=== PATIENT | male | born 1955 | race Caucasian/White ===

== ENCOUNTER 2022-12-07 08:22 | Emergency (ER) | payer MEDICARE, BC ==
[~2022-12-07] VITALS: Ht 182.9 cm; Wt 72.6 kg
[2022-12-07 10:24] LABS: Source, Urine Clean Catch
[2022-12-07 10:28] LABS: Hematocrit 40.2 % (37.0-53.0); Hemoglobin 13.5 g/dL (13.5-17.5); Mean Corpuscular HGB 29.2 pg (26.0-34.0); Mean Corpuscular HGB Conc 33.6 g/dL (31.5-36.5); Mean Corpuscular Volume 87 fL (80-100); Mean Platelet Volume 9.4 fL (9.1-12.4); Platelet Count 269 K/mm3 (150-400); RDW Coefficient Variation 13.5 % (11.7-14.2); RDW Standard Deviation 42.5 fL (35.1-46.3); Red Blood Cell Count 4.62 M/mm3 (4.30-5.90); White Blood Cell Count 12.86 K/mm3 (4.00-11.30)
[2022-12-07 10:30] LABS: Appearance, Urine Hazy (Clear); Bilirubin, Urine Neg (Neg); Blood, Urine 5+ (Neg); Color, Urine Amber (P-Yellow); Glucose Qualitative, Urine Neg (Neg); Ketones, Urine Neg (Neg); Leukocyte Esterase, Urine 3+ (Neg); Nitrite, Urine Neg (Neg); Protein, Urine 3+ (Neg); Urobilinogen, Urine NORM (Normal)
[2022-12-07 10:39] LABS: Mucus Light (0-Heavy); Squamous Epithelial Cells Few /hpf (Few)
[2022-12-07 10:40] LABS: Bacteria Few /hpf; Oval Fat Bodies Few /lpf; Red Blood Cells, Urine TNTC /hpf (0-2); White Blood Cells, Urine TNTC /hpf (0-5)
[2022-12-07 10:48] LABS: BASOPHILS PERCENT MAN 0 % (0-2); EOSINOPHILS ABSOLUTE MAN 0.12 K/mm3 (0.00-0.68); EOSINOPHILS PERCENT MAN 1 % (0-6); LYMPHOCYTES % ATYPICAL MANUAL 3 % (0-0); LYMPHOCYTES ABSOLUTE MAN 2.44 K/mm3 (0.84-5.20); LYMPHOCYTES PERCENT MAN 16 % (21-46); MONOCYTES ABSOLUTE MAN 0.51 K/mm3 (0.16-1.47); MONOCYTES PERCENT MAN 4 % (4-13); NEUTROPHILS ABSOLUTE MAN 9.77 K/mm3 (1.96-9.15); SEG NEUTROPHILS PERCENT MAN 76 % (41-73); TOTAL CELLS COUNTED 100
[2022-12-07 10:52] LABS: Albumin/Globulin Ratio 0.7 (0.8-1.8); Bilirubin, Total 0.3 mg/dL (0.1-1.0); Bun/Creatinine Ratio 12.6 (12.0-20.0); Calcium, Blood 9.4 mg/dL (8.5-10.1); Creatinine, Blood 0.96 mg/dL (0.60-1.20); Globulin, Blood 4.2 g/dL (2.2-4.0); Potassium, Blood 3.5 mmol/L (3.5-5.5); Total Protein, Blood 7.2 g/dL (6.4-8.2)
[2022-12-07] MEDS ORDERED: CEFP200 PO (11:47)
[2022-12-07 12:26] VITALS: BP 133/82
== END 2022-12-07 12:23 | disposition home or self-care (01) ==
LOC: ER 08:22
PROVIDERS: Emergency Medicine
DX: N12 Tubulo-interstitial nephritis, not specified as acute or chronic (principal)
CPT/HCPCS: 36415; 74176; 80053; 81001; 83605; 85025; 87040; 87077; 87086; 87186; 96365; 99284-25; J0696

== ENCOUNTER 2023-08-29 07:17 | Inpatient (IN) | payer MEDICARE, BC ==
[~2023-08-29] VITALS: Ht 180.3 cm; Wt 92.1 kg
[~2023-08-29 07:17] MED LIST: CEFP200 PO
[2023-08-29] MEDS ORDERED: Ondansetron HCl 2 MG / ML 2ML Vial IV ONE (08:50)
[2023-08-29] MEDS ORDERED: NS 1,000 ML IV SCH ×2 (08:50→13:00)
[2023-08-29 08:58] LABS: BASOPHILS ABSOLUTE AUTO 0.02 K/mm3 (0.00-0.23); BASOPHILS PERCENT AUTO 0 % (0-2); EOSINOPHILS PERCENT AUTO 0 % (0-6); Hematocrit 37.1 % (37.0-53.0); Hemoglobin 12.4 g/dL (13.5-17.5); IMMATURE GRAN ABSOLUTE AUTO 0.08 K/mm3 (0.00-0.10); IMMATURE GRAN PERCENT AUTO 1 % (0-1); LYMPHOCYTES ABSOLUTE AUTO 0.85 K/mm3 (0.84-5.20); LYMPHOCYTES PERCENT AUTO 5 % (21-46); MONOCYTES ABSOLUTE AUTO 0.86 K/mm3 (0.16-1.47); MONOCYTES PERCENT AUTO 5 % (4-13); Mean Corpuscular HGB Conc 33.4 g/dL (31.5-36.5); Mean Corpuscular Volume 90 fL (80-100); Mean Platelet Volume 8.8 fL (9.1-12.4); NEUTROPHILS ABSOLUTE AUTO 14.63 K/mm3 (1.96-9.15); NEUTROPHILS PERCENT AUTO 89 % (41-73); Platelet Count 281 K/mm3 (150-400); RDW Coefficient Variation 13.4 % (11.7-14.2); RDW Standard Deviation 44.3 fL (35.1-46.3); Red Blood Cell Count 4.13 M/mm3 (4.30-5.90); White Blood Cell Count 16.44 K/mm3 (4.00-11.30)
[2023-08-29 09:01] LABS: Source, Urine Clean Catch
[2023-08-29 09:03] LABS: Bilirubin, Urine Neg (Neg); Blood, Urine Neg (Neg); Glucose Qualitative, Urine Neg (Neg); Ketones, Urine Neg (Neg); Leukocyte Esterase, Urine Neg (Neg); Nitrite, Urine Neg (Neg); Protein, Urine Neg (Neg); Urobilinogen, Urine NORM (Normal)
[2023-08-29 09:06] LABS: Appearance, Urine Clear (Clear); Color, Urine Yellow (P-Yellow)
[2023-08-29 09:19] LABS: Albumin, Blood 3.9 g/dL (3.4-5.0); Albumin/Globulin Ratio 1.1 (0.8-1.8); Bilirubin, Total 0.7 mg/dL (0.1-1.0); Bun/Creatinine Ratio 13.7 (12.0-20.0); Calcium, Blood 10.1 mg/dL (8.5-10.1); Creatinine, Blood 2.62 mg/dL (0.60-1.20); Globulin, Blood 3.4 g/dL (2.2-4.0); Potassium, Blood 4.8 mmol/L (3.5-5.5); Total Protein, Blood 7.3 g/dL (6.4-8.2)
[2023-08-29] MEDS ORDERED: FentaNYL Citrate 50 MCG/ML 2 ML Injection IV PRN (12:15)
[2023-08-29] MEDS ORDERED: Acetaminophen 325 MG TABLET PO PRN (12:15)
[2023-08-29] MEDS ORDERED: HYDROcodone 5-APAP 325 TAB PO PRN (12:20)
[2023-08-29] MEDS ORDERED: Ondansetron HCl 2 MG / ML 2ML Vial IV PRN (12:20)
[2023-08-29] MEDS ORDERED: HydrALAZINE HCl 20 MG / ML 1ML Vial IV PRN (12:20)
[2023-08-29 14:19] VITALS: BP 131/68
[2023-08-29] MEDS ORDERED: Tamsulosin HCl 0.4 MG Cap PO SCH (15:00)
--- NOTE | 2023-08-29 18:30 | NUR ---
SHIFT SUMMARY 68 Y/O MALE ER ADMIT FOR ACUTE RENAL FAILURE. PT BUCKED OFF HORSE ABOUT 12 DAYS AGO AND REPORTS INCREASING N/V, ABD PAIN, COLD SWEATS, AND UNABLE TO URINATE SINCE NOON 08/28/23. PT ALSO REPORTED SOB W/ AMBULATION. PT DENIES PAIN. PT REPORTS ONLY MEDICAL HX IS ENLARGED PROSTATE, UNMEDICATED. CURRENTLY NEW RX FOR FLOMAX. VS STABLE. ALCANTAR IN PLACE DRAINING LIGHT YELLOW URINE. PER DR. LAWLER TO REMAIN IN PLACE FOR DAY OR TWO TO ASSIST IN RETENTION AND RENAL FX. DR BELTRAN IN TO SEE PT THIS ESTELITA, REPORTS NO SURGICAL INTERVENTIONS NEEDED AT THIS TIME, AND NO MOBILITY RESTRICTIONS. PT A&OX4, PLEASANT. CALL LIGHT W/IN REACH. NO ACUTE CHANGES THIS SHIFT.
[2023-08-29 19:22] VITALS: BP 107/65
[2023-08-30 04:35] VITALS: BP 113/70
[2023-08-30 04:52] LABS: Hematocrit 34.8 % (37.0-53.0); Hemoglobin 11.5 g/dL (13.5-17.5); Mean Corpuscular HGB 30.1 pg (26.0-34.0); Mean Corpuscular Volume 91 fL (80-100); Platelet Count 232 K/mm3 (150-400); RDW Coefficient Variation 13.8 % (11.7-14.2); RDW Standard Deviation 45.6 fL (35.1-46.3); Red Blood Cell Count 3.82 M/mm3 (4.30-5.90); White Blood Cell Count 11.35 K/mm3 (4.00-11.30)
--- NOTE | 2023-08-30 05:04 | NUR ---
SHIFT SUMMARY VSS, TELE READS SR 70. PT SLEPT WELL T/O THE ENTIRE NIGHT, DID NOT GET OOB. ALCANTAR REMAINS IN PLACE, DRAINING YELLOW URINE. PT REPORTS MINIMAL PAIN ON L SIDE OF BODY BUT DENIES NEEDING PAIN MEDICATION AT THIS TIME. NO ACUTE EVENTS NOTED. PLAN TO AWAIT LAB RESULTS AND FURTHER ORDERS FROM THE PROVIDER. THE PATIENT IS CURRENTLY EATING A SNACK, IN NO DISTRESS, CALL LIGHT IN REACH
[2023-08-30 05:46] LABS: Calcium, Blood 9.3 mg/dL (8.5-10.1); Potassium, Blood 3.9 mmol/L (3.5-5.5)
[2023-08-30 07:41] VITALS: BP 121/75
[2023-08-30 14:49] VITALS: BP 131/90
--- NOTE | 2023-08-30 15:27 | NUR ---
REPORT RECEIVED FROM TIM CORBIN AND ASSUMED CARE FOR THIS PATIENT. PATIENT SITTING UP IN CHAIR. APPEARED COMFORTABLE AND DENIED ANY DISCOMFORT AT THE TIME. CALL LIGHT WITHIN REACH.
--- NOTE | 2023-08-30 18:07 | NUR ---
SHIFT SUMMARY URINE RETENTION AND ACUTE KIDNEY INJURY A&O X 4. COMMUNICATED ALL NEEDS WELL. PLEASANT AND COOPERATIVE. AMBULATORY WITHOUT ASSISTANCE OR ASSISTIVE DEVICE. INDWELLING ALCANTAR REMOVED TODAY AT 0955. NO VOID AT 1615. BLADDER SCANNED WITH 896CC WITH C/O BLADDER PRESSURE AND SHAKING. DR. HALL VISITED AND GAVE ORDER TO STRAIGHT CATH AND PROVIDE PATIENT TEACHING TO STRAIGHT CATH PART OF DISCHARGE PLANNING. STRAIGHT CATH PERFORMED @ 1700 AND ABLE TO OBTAIN 1050CC OF CLEAR AND YELLOW URINE. PATIENT TOLERATED PROCEDURE WELL AND TEACHING PROVIDED. ROSITA CORBIN CALLED DR. HALL AND REPORTED STRAIGHT CATH RESULTS. RECEIVED ORDER PER DR. HALL TO STRAIGHT CATH EVERY 4 HOURS NEEDED FOR BLADDER SCAN OVER 300CC. PATIENT HAD RECENT INCIDENT WITH MULTIPLE LEFT RIB FX AND LEFT PELVIC FX. PAIN IS MANAGED WITH REST AND PATIENT REPORTS 0/10 DURING THIS ASSESSMENT RELATED TO MENTIONED INJURIES. ALL PATIENTS NEEDS ANTICIPATED AND MET. CALL LIGHT WITHIN REACH.
[2023-08-30 20:24] VITALS: BP 139/84
[2023-08-30] MEDS ORDERED: Tamsulosin HCl 0.4 MG Cap PO SCH (21:00)
--- NOTE | 2023-08-30 21:29 | NUR ---
URINARY MANAGEMENT PT REPORTED FLANK PAIN AND SUPRAPUBIC TENDERNESS, LAST STRAIT CATH BEING AROUND 1700 W/ 1000MLS OUTPUT. PT WAS REQUESTING A BLADDER SCAN AT THIS TIME, AROUND 2119. BLADDER SCAN SHOWED RESULTS >950. PT STATED HE DID NOT WANT ANOTHER STRAIT CATH AND WAS FEELING VERY ANXIOUS AND DISCOURAGED ABOUT HAVING TO DO THAT AT HOME. HE EXPRESSED AT THIS TIME HE WOULD BE MORE COMFORTABLE WITH A ALCANTAR IN PLACE AND LEARN HOW TO MANAGE THIS PROPERLY. CALL PLACED TO HOSPITALIST AND EXPLAINED THE SITUATION, RECIEVED ORDER FOR ACLANTAR PLACEMENT. IMMEDIATELY GOT 1000 MLS URINE OUTPUT, PT REPORTS SIGNIFIGANT RELIEF. URINE SENT TO LAB FOR URINE SCREEN. PLAN TO CALL HOSPIALIST WITH FURTHER CONCERNS
[2023-08-30 21:54] LABS: Source, Urine Foley catheter
[2023-08-30 21:57] LABS: Bilirubin, Urine Neg (Neg); Blood, Urine 4+ (Neg); Glucose Qualitative, Urine Neg (Neg); Ketones, Urine Neg (Neg); Leukocyte Esterase, Urine Neg (Neg); Nitrite, Urine Neg (Neg); Protein, Urine Neg (Neg); Specific Gravity, Urine 1.015 (1.003-1.022); Urobilinogen, Urine NORM (Normal)
[2023-08-30 22:01] LABS: Appearance, Urine Clear (Clear); Color, Urine Yellow (P-Yellow)
[2023-08-30 22:17] LABS: Bacteria Rare /hpf; Red Blood Cells, Urine 0-2 /hpf (0-2); Squamous Epithelial Cells Rare /hpf (Few); White Blood Cells, Urine 0-2 /hpf (0-5)
[2023-08-31 04:48] VITALS: BP 118/72
--- NOTE | 2023-08-31 05:47 | NUR ---
SHIFT SUMMARY VSS. PT SLEPT WELL T/O THE NIGHT. REPORTS SIGNIFIGANT IMPROVEMENT IN LOWER BACK/FLANK DISCOMFORT SINCE ALCANTAR PLACEMENT. LARGE AMOUNTS OF URINE NOTED. PLEASE SEE PREVIOUS NURSING NOTE FOR UPDATE ON WHY ALCANTAR CATHETER WAS PLACED. TOLLERATING PO W/O N/V. OVERALL NO ACUTE EVENTS NOTED. PLAN FOR PT TO D/C WHEN MEDICALLY CLEARED
[2023-08-31 05:48] LABS: Bun/Creatinine Ratio 19.4 (12.0-20.0); Calcium, Blood 9.8 mg/dL (8.5-10.1); Creatinine, Blood 0.88 mg/dL (0.60-1.20)
[2023-08-31 07:46] VITALS: BP 120/85
[2023-08-31] MEDS ORDERED: TAMS.4ER PO (10:33)
--- NOTE | 2023-08-31 13:30 | NUR ---
DISCHARGE SUMMARY ADMITTED FOR URINE RETENTION AND ALVARO. A&O X 4. PLEASANT AND COOPERATIVE. COMMUNICATED WELL. 16FR 10CC INDWELLING ALCANTAR IN PLACE. DRAINING CLEAR AND YELLOW URINE. DISCUSSED AND REVIEWED DISCHARGE PACKET TO PATIENT. PROVIDED TEACHING REGARDING INDWELLING ALCANTAR CARE AT HOME AND HOW TO CHANGE FROM OVERNIGHT BAG TO LEG BAG. OVERNIGHT DRAIN BAG CHANGED TO LEG BAG PLACED PRIOR TO DISCHARGE. PATIENT VERBALIZED GOOD UNDERSTANDING AND WAS VERY RECEPTIVE OF ALL TEACHINGS. DISCHARGE PACKET AND PERSONAL BELONGINGS SENT WITH PATIENT. PATIENT'S SPOUSE TO TRANSPORT PATIENT BACK TO HOME. PATIENT AMBULATED FROM ROOM TO VEHICLE. RX FAXED TO [facility]. PATIENT ALSO MADE AWARE OF HOME HEALTH REFERRAL AND VERBALIZED UNDERSTANDING.
== END 2023-08-31 13:11 | disposition home or self-care (01) | DRG 682 ==
LOC: ER 07:17 → MEDS 12:47 → SURS 14:13
PROVIDERS: Internal Medicine; Physician Assistant; ADMIT Internal Medicine
DX: N17.9 Acute kidney failure, unspecified (principal); K68.3 Retroperitoneal hematoma; S27.1XXA Traumatic hemothorax, initial encounter; S22.088A Other fracture of T11-T12 vertebra, initial encounter for closed fracture; S22.42XA Multiple fractures of ribs, left side, initial encounter for closed fracture; S33.4XXA Traumatic rupture of symphysis pubis, initial encounter; S30.0XXA Contusion of lower back and pelvis, initial encounter; K59.00 Constipation, unspecified; N40.0 Benign prostatic hyperplasia without lower urinary tract symptoms; R33.9 Retention of urine, unspecified; N13.9 Obstructive and reflux uropathy, unspecified; V80.010A Animal-rider injured by fall from or being thrown from horse in noncollision accident, initial encounter
CPT/HCPCS: 36415; 51702; 71046; 71250; 72170; 74177; 80048; 80053; 81001; 81003; 83690; 85025; 85027; 96360-59; 97161; 99285-25; A9270; J7030; Q9967

== ENCOUNTER 2023-11-14 14:21 | Observation (INO) | payer MEDICARE, BC ==
[~2023-11-14] VITALS: Ht 182.9 cm; Wt 92.5 kg
[~2023-11-14 14:21] MED LIST changes: +TAMS.4ER PO
[2023-11-14] MEDS ORDERED: ELIQUIS2.5 M1 PO (14:28)
[2023-11-14 15:11] LABS: BASOPHILS ABSOLUTE AUTO 0.06 K/mm3 (0.00-0.23); BASOPHILS PERCENT AUTO 1 % (0-2); EOSINOPHILS ABSOLUTE AUTO 0.49 K/mm3 (0.00-0.68); EOSINOPHILS PERCENT AUTO 7 % (0-6); Hematocrit 42.6 % (37.0-53.0); Hemoglobin 13.9 g/dL (13.5-17.5); IMMATURE GRAN ABSOLUTE AUTO 0.02 K/mm3 (0.00-0.10); IMMATURE GRAN PERCENT AUTO 0 % (0-1); LYMPHOCYTES ABSOLUTE AUTO 1.71 K/mm3 (0.84-5.20); LYMPHOCYTES PERCENT AUTO 25 % (21-46); MONOCYTES ABSOLUTE AUTO 0.54 K/mm3 (0.16-1.47); MONOCYTES PERCENT AUTO 8 % (4-13); Mean Corpuscular HGB 28.7 pg (26.0-34.0); Mean Corpuscular HGB Conc 32.6 g/dL (31.5-36.5); Mean Corpuscular Volume 88 fL (80-100); Mean Platelet Volume 9.2 fL (9.1-12.4); NEUTROPHILS ABSOLUTE AUTO 4.05 K/mm3 (1.96-9.15); NEUTROPHILS PERCENT AUTO 59 % (41-73); Platelet Count 205 K/mm3 (150-400); RDW Coefficient Variation 13.5 % (11.7-14.2); RDW Standard Deviation 43.7 fL (35.1-46.3); Red Blood Cell Count 4.85 M/mm3 (4.30-5.90); White Blood Cell Count 6.87 K/mm3 (4.00-11.30)
[2023-11-14 15:39] LABS: Albumin, Blood 3.9 g/dL (3.4-5.0); Albumin/Globulin Ratio 1.2 (0.8-1.8); Bilirubin, Total 0.4 mg/dL (0.1-1.0); Bun/Creatinine Ratio 14.2 (12.0-20.0); Calcium, Blood 9.4 mg/dL (8.5-10.1); Creatinine, Blood 0.98 mg/dL (0.60-1.20); Globulin, Blood 3.2 g/dL (2.2-4.0); Total Protein, Blood 7.1 g/dL (6.4-8.2)
[2023-11-14 21:14] VITALS: BP 125/85
[2023-11-14] MEDS ORDERED: Zolpidem Tartrate 10 MG Tab PO PRN (21:19)
[2023-11-14] MEDS ORDERED: Ondansetron HCl 2 MG / ML 2ML Vial IV PRN (21:25)
[2023-11-14] MEDS ORDERED: Ondansetron 4 MG TAB PO PRN (21:25)
[2023-11-14] MEDS ORDERED: Apixaban 5 MG Tab PO SCH (22:45)
[2023-11-15 03:05] VITALS: BP 110/68
--- NOTE | 2023-11-15 05:19 | NUR ---
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 CALLS APPROPRIATELY AND INDEPENDENT IN ROOM. PATIENT HAS A HISTORY OF GRADE 1 PROSTATE CANCER, PROSTATE SURGERY DONE, STILL HAVING BLOODY URINE. HAD TIA, BRAIN SCAN SHOWED SMALL MENINGIOMA TO LEFT FRONTAL LOBE. FELL FROM RIDING HORSE FEW MONTHS AGO AND BROKE 6 BONES INCLUDING HHIS RIBS. PATIENT SAID IT'S HEALING BUT SOMETIMES PAINFUL WHEN HE COUGHS. ATIENT DEVELOPED DVT A FEW WEEKS AGO AND WAS PLACED ON 5MG ELIQUIS BID. 5MG OF EQULIS WAS GIVEN LAST NIGHT.
[2023-11-15 06:41] LABS: Albumin, Blood 3.3 g/dL (3.4-5.0); Anion Gap 10 mmol/L (3-11); Blood Urea Nitrogen 17 mg/dL (8-24); Bun/Creatinine Ratio 16.7 (12.0-20.0); CO2, Blood 26 mmol/L (21-32); Calcium, Blood 9.1 mg/dL (8.5-10.1); Chloride, Blood 111 mmol/L (98-108); Creatinine, Blood 1.02 mg/dL (0.60-1.20); Glomerular Filtration Rate 80 (60-); Glucose, Blood 106 mg/dL (70-99); Phosphorus, Blood 3.6 mg/dL (2.5-4.9); Potassium, Blood 4.4 mmol/L (3.5-5.5); Sodium, Blood 143 mmol/L (136-145)
[2023-11-15 07:01] VITALS: BP 118/79
--- NOTE | 2023-11-15 09:00 | NUR ---
Pt laying in bed awake watching tv, a/ox4, pleasant and cooperative with care, follows commands well, lungs are clear t/o, resp even and unlabored, no cough noted, hrr, no edema noted, ppp+2, cap refill <3 sec vs stable, afebrile, piv to rac site is clear and patent, btx4, abd flat soft nontender, voids without diff, skin c/w/d, maew, prince, call light in reach.
--- NOTE | 2023-11-15 13:43 | NUR ---
pt has been discharged to home, went over discharge instructions with him, he verbalized understanding, iv removed intact, left via wheelchair with web content developer in attendance with all his belongings.
== END 2023-11-15 13:29 | disposition home or self-care (01) ==
LOC: ER 14:21 → MEDS 14:22 → ENPENDDIS 11-15 12:42 → MEDS 11-15 13:29
PROVIDERS: Student in an Organized Health Care Education/Training Program; ADMIT Internal Medicine
DX: R20.2 Paresthesia of skin (principal); R20.0 Anesthesia of skin; R23.8 Other skin changes; I82.403 Acute embolism and thrombosis of unspecified deep veins of lower extremity, bilateral; Z79.01 Long term (current) use of anticoagulants
CPT/HCPCS: 36415; 70450; 70551; 71045; 80053; 80069; 85025; 93005; 93010; 93306; 93880; 93970; 93971; 97161; 99285-25; A9270; G0378